=== PATIENT | male | born 1975 | race Caucasian/White ===

== ENCOUNTER → 2018-09-13 | Emergency (ER) | payer SELFPAY ==
[~2018-09-13] VITALS: Ht 175.3 cm; Wt 86.1 kg
[~2018-09-13] MED LIST: BACTDS PO; CARB-155 BOTH EARS; HYDR28.334 TP
[2018-09-13 20:10] VITALS: BP 115/56; PULSE 54; RESP 18; Ht 175.3 cm; Wt 86.1 kg
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
== END | disposition home or self-care (01) ==
LOC: FTE 20:06
DX: R21 Rash and other nonspecific skin eruption (principal); H61.23 Impacted cerumen, bilateral
CPT/HCPCS: 99282